=== PATIENT | male | born 1975 | race Caucasian/White ===

== ENCOUNTER 2019-08-28 08:53 | Emergency (ER) | payer OTHER, SELFPAY ==
--- NOTE | ~2019-08-28 | XR_ITS ---
EXAMINATION: XR finger 4th RT min 2V DATE: 08/28/2019 09:21 INDICATION: Right hand fourth digit injury and pain. TECHNIQUE: 3 views of right hand fourth digit were obtained. COMPARISON: None. FINDINGS: Bone alignment is normal. No fracture. There is mild osteoarthritis of fourth metacarpophal angeal joint. IMPRESSION: 1. No fracture. Reviewed, dictated and finalized at location A. IMPRESSION: 1. No fracture.
[2019-08-28 09:09] VITALS: BP 120/71; PULSE 56; RESP 20; TEMP 36.8; O2SAT 100
--- NOTE | 2019-08-28 09:27 | ED.UPPEXIN ---
HPI - Extremity Injury (Upper) General Chief Complaint: Extremity Injury, Upper Stated Complaint: Injury to right ring finger Time Seen by Provider: 08/28/19 09:18 Source: patient and RN notes reviewed History of Present Illness HPI narrative: Patient is a 44-year-old male that presents the urgent care with complaints of a ring finger injury of the right hand. Patient states that he was using a wrench and smashed the finger between the wrench and a piece of metal. Patient states that he was at work but does not wish to use Workmen's Comp. patient is right-hand dominant. Patient states that occurred yesterday. Denies any other acute complaints or injuries. No other acute complaints. No acute distress noted. Patient read the plan of care. Related Data Home Medications Medication Instructions Recorded Confirmed No Home Medications 08/28/19 08/28/19 Allergies Allergy/AdvReac Type Severity Reaction Status Date / Time No Known Allergies Allergy Verified 08/28/19 09:17 Review of Systems Review of Systems: Narrative: CONSTITUTIONAL: Denies fever, chills, or sweats. EYES: Denies visual changes, redness, or discharge. ENT: Denies rhinorrhea, congestion, sore throat, or otalgia. CARDIOVASCULAR: Denies chest pain, palpitations, or edema. RESPIRATORY: Denies cough or dyspnea. GASTROINTESTINAL: Denies abdominal pain, nausea, vomiting, or diarrhea. GENITOURINARY: Denies dysuria or hematuria. SKIN: Denies rash or itching. MUSCULOSKELETAL: Reports of right ring finger injury NEUROLOGIC: Denies headache, numbness, or weakness. All other systems reviewed are negative, except as documented in HPI. PMFSH Comments At the time of my signature, I reviewed and agree with the nursing past medical, surgical, social, and family history. There is no relevant family history pertinent to the patient complaint. Exam Narrative: Exam Narrative: GENERAL: This is a well-nourished, well-developed patient, in no apparent distress. HEAD: normocephalic, atraumatic. EYES: PERRL. Sclera clear/white. Vision is grossly intact. EARS: External ears normal NOSE: External nose normal with no obvious nasal discharge THROAT: Mucous membranes moist NECK: Neck supple CARDIOVASCULAR: Regular rate and rhythm without murmurs, gallops, or rubs. RESPIRATORY: Clear to auscultation. Breath sounds equal bilaterally. No wheezes, rales, or rhonchi. SKIN: warm, intact with no suspicious lesions or rash, good texture and turgor. NEURO: awake, alert, and oriented to person, place and time. There were no obvious focal neurologic abnormalities. EXTREMITIES: Mild to moderate edema and ecchymosis noted to the distal tuft of the ring finger of the right hand. Capillary refill less than 2 seconds with range of motion within normal limits. No open notable areas to the injury. Course Vital Signs Vital signs: Vital Signs Temperature 98.3 F 08/28/19 09:09 Pulse Rate 56 L 08/28/19 09:09 Respiratory Rate 20 08/28/19 09:09 Blood Pressure 120/71 08/28/19 09:09 Pulse Oximetry 100 08/28/19 09:09 Temperature 98.3 F 08/28/19 09:09 Pulse Rate 56 L 08/28/19 09:09 Respiratory Rate 20 08/28/19 09:09 Blood Pressure 120/71 08/28/19 09:09 Pulse Oximetry 100 08/28/19 09:09 Reviewed MDM - Extremity Injury (Upper) MDM Narrative Medical decision making narrative: Reviewed x-ray results with the patient. He is aware that there is no fracture or abnormality in bone alignment. Mild osteoarthritis seen. Advised the patient that he may splint it for comfort. Use ice and elevate the hand. May use Tylenol as needed for pain. Differential Diagnosis Differential diagnosis: Likely finger sprain, dislocation of finger and fracture of hand Imaging Data Radiologist's impression: Patient: Carlos Alberto Sharma KMR#: [id number] : 1975Acct:[id number] Age/Sex: 44 / MADM Date: 08/28/19 Loc: [facility] Attending Dr: Ordering Physician: Barbara Carlton APN Date of
== END 2019-08-28 09:37 | disposition home or self-care (01) ==
PROVIDERS: Emergency Provider Nurse Practitioner Family
DX: S60.041A Contusion of right ring finger without damage to nail, initial encounter (principal); X58.XXXA Exposure to other specified factors, initial encounter
CPT/HCPCS: 29130; 73140; 99213; G0463

== ENCOUNTER 2020-01-19 15:53 | Emergency (ER) | payer OTHER, SELFPAY ==
[2020-01-19 16:00] VITALS: BP 131/88; PULSE 65; RESP 14; TEMP 37.2; O2SAT 100
--- NOTE | 2020-01-19 16:24 | ED.SKABFB ---
HPI - Skin/Abscess/Foreign Bdy General Chief complaint: Skin/Abscess/Foreign Body Stated complaint: rash on throat/arms Time Seen by Provider: 01/19/20 16:24 Source: patient Mode of arrival: ambulatory Limitations: no limitations History of Present Illness HPI narrative: Marc Sharma is a 44 yo male with no PMH who comes to express care with rash that .. has continued to spread and get get worse over the last 10 days. Initially came in contact with poison hitesh although he has never broken out throat before, and was seen in an urgent care a week and half ago and given 60 mg of prednisone x10 days. He has hives on his neck and continues to have open sores on his arms from scratching and breath and between the webs of his fingers; he is shaking due to the severity of itching. He has open sores on his arms from scratching Related Data Allergies Allergy/AdvReac Type Severity Reaction Status Date / Time No Known Allergies Allergy Verified 08/28/19 09:17 Review of Systems Review of Systems: Narrative: CONSTITUTIONAL: Denies fever, chills, sweats. EYES: Denies visual changes, redness, discharge. ENT: Denies rhinorrhea, congestion, sore throat, otalgia. CARDIOVASCULAR: Denies chest pain, palpitations, edema. RESPIRATORY: Denies dyspnea, wheezing, cough GASTROINTESTINAL: Denies abdominal pain, nausea, vomiting, diarrhea. GENITOURINARY: Denies dysuria, hematuria, abnormal discharge SKIN: Denies rash or itching. Hives on the back and spots of poison hitesh on chest back right hip along arms and between fingers of both hands NEUROLOGIC: Denies numbness, or focal weakness. PSYCHIATRIC: Denies anxiety or depression. PMFSH Past Medical History Medical History No active medical problems Family History Family History Other No active medical problems Social History Social History (Updated 01/19/20 @ 16:54 by Kerry Smith CNP) Smoking status: Never smoker Alcohol intake: current Comments At time of signature, I agree with nursing past medical, surgical, social and family history. There is no relevant family history pertinent to the presenting complaint. Exam Narrative: Exam Narrative: GENERAL: This is a well-nourished, well-developed patient, in moderate distress. HEAD: normocephalic, atraumatic. EYES: Sclera clear/white. Vision is grossly intact. EARS: External ears normal, Hearing grossly intact. NOSE: External nose normal without nasal discharge, nares without redness, no rhinorrhea. THROAT: Mucous membranes moist, no respiratory difficulty able to speak freely NECK: Neck supple, non-tender; hives on right side of neck, states is very pruritic CARDIOVASCULAR: Regular rate and rhythm without murmurs, gallops, or rubs. RESPIRATORY: Clear to auscultation. Breath sounds equal bilaterally. No wheezes, rales, or rhonchi. GASTROINTESTINAL: Abdomen soft, non-tender, SKIN: warm, multiple areas of scabbing and open sores on arms and between fingers; has rash involving her fingers and up arms NEURO: awake, alert, and oriented to person, place and time. There were no obvious focal neurologic abnormalities. Steady gait EXTREMITIES: Normal range of motion. BACK: Nontender without deformity Course Course Emergency Course: Given Solu-Medrol Pepcid and Benadryl in clinic Re-evaluation: Patient is still shaking and states that the itching has increased and he feels much less shaky. Discharged home after discussion Discharged on TaperPak of prednisone, Vistaril for itching, pepcid , and Zyrtec-discussed use of lotion and things like oatmeal bath to calm rash as well as spray hydrocortisone. If rash is not improved patient must see a electrolytic etcher as this will be the second treatment failure to control his rash. Vital Signs Vital signs: Vital Signs Temperature 98.9 F 01/19/20 16:00 Pulse Rate 65 01/19/20 16:00
[2020-01-19] MEDS: FAMOTIDINE 20 MG TABLET PO (16:48)
[2020-01-19] MEDS: methylPREDNISolone SOD SUCC 125 MG VIAL IM (16:49)
[2020-01-19] MEDS: diphenhydrAMINE HCl CAP 25 MG CAPSULE 50 MG PO (16:53)
== END 2020-01-19 17:41 | disposition home or self-care (01) ==
PROVIDERS: Emergency Provider Nurse Practitioner; PCP Internal Medicine
DX: L23.7 Allergic contact dermatitis due to plants, except food (principal)
CPT/HCPCS: 96372; 99213; A9270; G0463; J2930